=== PATIENT | male | born 1950 | race Caucasian/White ===

== ENCOUNTER 2016-05-21 12:00 | Day surgery (SDC) | payer MEDICARE ==
[~2016-05-21] VITALS: Ht 185.4 cm; Wt 110.0 kg
[~2016-05-21 12:00] MED LIST: ALLO300T2 PO; ASPI-973 PO; COLC0.6T52 PO; LISI40TA PO; Lactated Ringer's 1,000 ML IV ONE; METO25TA6 PO; MULT-666 PO; SIMV80TA4 PO
[2016-05-21] MEDS ORDERED: Propofol 10,000 mCg/mL 20 mL Inj ONE (12:01)
[2016-05-21] MEDS ORDERED: EPHEDrine/NS 5 mg/mL 5 mL Syringe ONE (12:01)
[2016-05-21] MEDS ORDERED: Glycopyrrolate 0.2 mg/mL 5 mL Inj ONE (12:01)
[2016-05-21] MEDS ORDERED: fentaNYL-PF 50 mCg/mL 2 mL Inj ONE (12:01)
[2016-05-21 12:31] VITALS: BP 154/80; PULSE 52; RESP 16; O2SAT 95
--- NOTE | 2016-05-21 12:46 | PCM.HPANE ---
Patient Data Surgeon Admitting Provider: Attending Provider:Janet Buchanan MD Primary Care Physician:Anyi Chapin MD Other Provider:Yolie Velazquezingham Anesthesia Reason for Visit Tubular Adenoma Ht/WT & BMI Height (Feet): 6 Height (Inches): 1 Weight (Kilograms): 110 Body Mass Index 32.00 Allergies Coded Allergies: No Known Allergies (Verified , 05/21/16) Past Anesthesia History Anesthesia History: Denies:: Abnormal Airway, Anesthesia Reactions, Difficult Intubation, Fam Anesthesia Reaction, Fam Malignant Hypertherm, Malignant Hyperthermia Diabetes History Hx Diabetes?: No MRSA MRSA: No Medications Hypertension Medication: Yes Home Meds Incl Beta Kristen: Yes Previous Beta Kristen Dose >24: Previous Dose <24 Hours Reported Medications Simvastatin 80 Mg Lawnui02 Mg PO HS 30 Days Ref 0 05/20/16 Multivitamin (Once Daily)1 Each Tablet1 Each PO DAILY 05/20/16 Metoprolol Tartrate 25 Mg Fztdyt09 Mg PO BID 30 Days Ref 0 05/20/16 Lisinopril 40 Mg Sdnexv24 Mg PO DAILY 30 Days Ref 0 05/20/16 Aspirin 81 Mg Tkierx09 Mg PO DAILY Ref 0 05/20/16 Allopurinol 300 Mg Veaben246 Mg PO DAILY Ref 0 05/20/16 Discontinued Reported Medications Colchicine (Colcrys)0.6 Mg Tablet0.6 Mg PO DIRECTED PRN For Mild Pain 05/20/16 History History of ENT Problems?: No HEENT History: Denies:: Abnormal Airway Difficult Intubation Hearing Problem Hx of Heart Problems?: Yes Cardiovascular History: Positive for:: Hypertension (CONTROLLED WITH MEDS) Denies:: Valvular Heart Disease Other Cardiac History: THORACIC AORTIC ANEURYSM- STABLE He denies any recent CP/SOB Hx of Respiratory Problem?: No Hx Neurologic Problems?: No Neurological History: Denies:: CVA Hx of GI Problems?: Yes Hx of Problems?: No Hx Musculoskeletal Problems?: No Musculoskeletal History: Denies:: Joint Replacement Psycho Social History: Denies:: Anxiety Hx Depression Hx Surgeries?: Yes (L BICEPS, R&L ROTATOR CUFF REPAIR, THUMB, ) Hx Any Other Health Problems?: Yes Hx Diabetes: No Hx Alcohol Use: Yes (6-8 BEERS PER WEEK)Hx Substance Use: NoHave You Smoked inLast 12 mo: No Stop/Bang TARAN Risk Assessment: High Risk, =/>3 Yes Risk Assessment Category Category 1A: Patient has history of documented sleep apnea, and HAS NOT received any narcotic, sedative or anesthesia administration during this stay. Category 1B: Patient has history of documented sleep apnea, and HAS received any narcotic , sedative or anesthesia administration during this stay Category 2: Patient has SUSPECTED Obstructive Sleep Apnea, and HAS received any narcotic , sedative or anesthesia administration during this stay. Category 3: Patient has SUSPECTED Obstructive Sleep Apnea and HAS NOT received narcotic, sedative or anesthesia administration during this stay. Category 4: Outpatient in Procedural Areas with known sleep apnea or who screen positive for High Risk via the STOP/BANG questionnaire. Exam Exam General Appearance: Alert, Oriented X3, Cooperative, No Acute Distress HEENT/AIRWAY: MP 2 Lungs: Clear to Auscultation, Normal Air Movement Heart: Exam Unremarkable, Regular Rate/Rhythm, No Murmurs/Rubs/Gallops Meds/Labs/Diagnostics Admission Meds Current Medications Lactated Ringer's (Lr) 1,000 ml @ 10 mls/hr Q24H ONCE IV Last administered on 05/21/16t 12:33; Start 05/21/16 at 06:00; Stop 05/22/16 at 05:59 Plan Impression Patient chart reviewed, patient interviewed and anesthestic plan with risks, benefits, and alternatives discussed, and informed consent obtained. ASA Physical Status: ASA2 Mod Systemic Disease Anesthetic Plan: GA, MAC Bene/Risks/Altern/Consents: Yes HP Complete Prior to Induction: Yes Ryland Collins MD May 21, 2016 12:43
[2016-05-21] MEDS ORDERED: Lactated Ringer's 1,000 ML IV SCH (12:51)
[2016-05-21] MEDS ORDERED: Lactated Ringer's 500 ML IV PRN (12:51)
[2016-05-21] MEDS ORDERED: Ondansetron 2 mg/mL 2 mL Inj IVPUSH PRN (12:55)
[2016-05-21] MEDS ORDERED: MetoCLOpramide 5 mg/mL 2 mL Inj IVPUSH PRN (12:55)
[2016-05-21] MEDS ORDERED: Atropine 0.4 mg/mL Inj IVPUSH PRN (12:55)
[2016-05-21 14:02] VITALS: BP 130/78; PULSE 70; RESP 16; O2SAT 97
--- NOTE | 2016-05-21 14:06 | PCM.ANEP2 ---
Post Anesthesia Evaluation ASA/CMS Post Anesthesia VS in Patient's Normal Range?: Yes Resp Stable; Airway Patent?: Yes CV Function & Hydration Stable: Yes Mental Status Recovered?: Yes Pain control Satisfactory?: Yes N/V Control Satisfactory?: Yes Ryland Collins MD May 21, 2016 14:06
[2016-05-21 14:15] VITALS: BP 139/78; PULSE 53; RESP 12; O2SAT 98
[2016-05-21 14:24] VITALS: BP 127/75; PULSE 56; RESP 14; O2SAT 98
--- NOTE | 2016-05-21 15:02 | ENDO ---
[address] [address] ENDOSCOPY PROCEDURE PATIENT: GIBRAN JONES : 1950 MR#: [id number] ADMIT: 05/21/2016 JOB ID: [id number] DATE OF SERVICE: 05/21/2016 PREPROCEDURAL DIAGNOSES: 1. Colon polyps. 2. History of tubulovillous adenoma. POSTPROCEDURAL DIAGNOSES: 1. Colon polyps. 2. History of tubulovillous adenoma. PROCEDURE PERFORMED: Colonoscopy with biopsies. SURGEON: Janet Buchanan MD. INSTRUMENT: [employer] [id number] #[id number]. MEDICATIONS: Monitored anesthesia care was administered. FINDINGS: 1. A 5 mm polyp at the hepatic flexure, removed with cold forceps. 2. A 5 mm polyp in the cecum, removed with cold forceps. HISTORY OF PRESENT ILLNESS: This is a 66-year-old man who underwent a screening colonoscopy several years ago and was found to have both a tubulovillous adenoma and a tubular adenoma. The recommendation was made that he have repeat colonoscopy in three years. He therefore presented for repeat screening colonoscopy. PREPARATION: Fair. DESCRIPTION OF PROCEDURE: The patient was brought to the endoscopy suite, and placed in left lateral decubitus position. Moderate anesthesia was induced by the anesthesiologist. External and perianal exam revealed a small external hemorrhoidal skin tag. The colonoscope was advanced to the cecum, which was identified by the coalescence of the tenia, the presence of the ileocecal valve, and the appendiceal orifice. Because the prep was fair, the withdrawal took 31 minutes, in order to adequately clean the mucosa and visualize it. Two polyps were seen and were each removed with cold biopsy forceps, one in the cecum, 5 mm in size; the second at the hepatic flexure, also 5 mm in size. Sigmoid diverticulosis was present as well, mild. The colonoscope was advanced into the rectum. On retroflex view, the examination was normal. The colonoscope was withdrawn. The patient tolerated the procedure well. COMPLICATIONS: None. SPECIMENS: 1. Hepatic flexure polyp. 2. Cecal polyp. ESTIMATED BLOOD LOSS: None. ADDENDUM: Final pathology demonstrated tubular adenoma of both polyps removed. I recommend repeat colonoscopy in 5 years. BEBA
--- NOTE | 2016-05-25 11:25 | PATH ---
SURGICAL PATHOLOGY Attending Physician:Janet Buchanan MD CASE STATUS: Signed Out PATIENT NAME: GIBRAN JONES PID: [id number] : 1950 DATE COLLECTED:05/21/2016 00:00 SPECIMEN: 1: Colon, Biopsy 2: Colon, Biopsy CLINICAL HISTORY: 1: HEPATIC FLEXURE POLYP 2: CECAL POLYP FINAL DIAGNOSIS: 1.HEPATIC FLEXURE POLYP: TUBULAR ADENOMA. 2.CECAL POLYP: TUBULAR ADENOMA. ICD10 CODE D12.0 GROSS DESCRIPTION: The specimen is received in two formalin filled containers labeled with the patient's name. 1). The specimen is sublabeled "hepatic flexure polyp" and consists of a 0.2 x 0.2 x 0.2 CM portion of tissue which is entirely submitted in cassette 1A. 2). The specimen is sublabeled "cecal polyp" and consists of a 0.3 x 0.3 x 0.2 CM portion of tissue which is entirely submitted in cassette 2A. 05/22/2016 DAC MICRO DESCRIPTION: See diagnosis. ICD-9 CODES: CPT CODES: 1: 72744 2: 11321 Electronically Signed Out Lion Vera MD [facility] [address], [place] [address] Technical component performed at [facility], [address] [place] [address] [address], [address]
== END 2016-05-21 23:59 | disposition home or self-care (01) ==
LOC: END 12:00
PROVIDERS: ATTEND Surgery
DX: Z12.11 Encounter for screening for malignant neoplasm of colon (principal); D12.0 Benign neoplasm of cecum; D12.2 Benign neoplasm of ascending colon; Z86.010 Personal history of colon polyps; I10 Essential (primary) hypertension; E78.5 Hyperlipidemia, unspecified; G47.30 Sleep apnea, unspecified; M10.9 Gout, unspecified; N40.0 Benign prostatic hyperplasia without lower urinary tract symptoms; Z87.891 Personal history of nicotine dependence; Z79.82 Long term (current) use of aspirin
CPT/HCPCS: 45380; 88305; J2250; J3010; J7120